=== PATIENT | male | born 1960 | race Caucasian/White ===

== ENCOUNTER 2023-11-02 10:58 | Emergency (ER) | payer MEDICAID ==
[~2023-11-02] VITALS: Ht 188 cm; Wt 126.8 kg
[~2023-11-02 10:58] MED LIST: GABA600T13 PO; LEVO750T68 PO; METR-159 PO
[2023-11-02] MEDS ORDERED: ketorolac trometh inj. 60 MG/2 ML VIAL IM ONE (12:35)
[2023-11-02] MEDS ORDERED: NAPR-56 PO (12:37)
[2023-11-02 12:47] VITALS: BP 132/92; PULSE 101; TEMP 97.8; O2SAT 96
[2023-11-02 13:23] VITALS: RESP 16
== END 2023-11-02 13:24 | disposition home or self-care (01) ==
LOC: ER 10:58
DX: S60.222A Contusion of left hand, initial encounter (principal); S60.221A Contusion of right hand, initial encounter; J44.9 Chronic obstructive pulmonary disease, unspecified; F12.90 Cannabis use, unspecified, uncomplicated; F15.90 Other stimulant use, unspecified, uncomplicated; Z88.0 Allergy status to penicillin; Z88.2 Allergy status to sulfonamides; Z88.6 Allergy status to analgesic agent; Z79.2 Long term (current) use of antibiotics; Z79.899 Other long term (current) drug therapy; W19.XXXA Unspecified fall, initial encounter; Y93.89 Activity, other specified; Y92.89 Other specified places as the place of occurrence of the external cause; Y99.8 Other external cause status
CPT/HCPCS: 73130; 99284

== ENCOUNTER 2023-11-25 14:55 | Outpatient (CLI) | payer MEDICAID ==
[~2023-11-25 14:55] MED LIST changes: +NAPR-56 PO
== END 2023-11-25 23:59 | disposition home or self-care (01) ==
LOC: RAD 14:55
PROVIDERS: ATTEND Family Medicine
DX: M17.11 Unilateral primary osteoarthritis, right knee (principal); M25.561 Pain in right knee; M25.761 Osteophyte, right knee
CPT/HCPCS: 73564